=== PATIENT | male | born 1975 | race Caucasian/White ===

== ENCOUNTER 2023-10-19 13:32 | Emergency (ER) | payer OTHER, SELFPAY ==
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
[2023-10-19 14:05] VITALS: BP 144/98; PULSE 87; RESP 20; TEMP 36.5; O2SAT 98
[2023-10-19 17:16] VITALS: BP 159/88; PULSE 87; RESP 18; O2SAT 99
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
[2023-10-19 17:52] LABS: Amphetamine Screen Urine Negative (Negative); Barbiturate Screen Urine Negative (Negative); Benzodiazepines Screen Urine Negative (Negative); Cannabinoid Screen Urine Negative (Negative); Cocaine Screen Urine Negative (Negative); Methadone Screen Urine Negative (Negative); Opiate Screen Urine Negative (Negative); Phencyclidine Screen Urine Negative (Negative)
[2023-10-19] MEDS: ACETAMINOPHEN 500 MG TABLET 1000 MG PO (17:56)
[2023-10-19] MEDS: MECLIZINE HCL 25 MG TABLET PO (17:57)
[2023-10-19 18:15] LABS: Ethanol < 10 mg/dL (<10)
== END 2023-10-19 18:40 | disposition home or self-care (01) ==
PROVIDERS: Emergency Provider Physician Assistant
DX: S09.90XA Unspecified injury of head, initial encounter (principal); Y04.2XXA Assault by strike against or bumped into by another person, initial encounter
CPT/HCPCS: 36415; 70450; 72050; 80307; 99284; A9270